=== PATIENT | male | born 1990 | race Two or more races ===

== ENCOUNTER 2019-07-20 01:35 | Emergency (ER) | payer SELFPAY ==
[~2019-07-20] VITALS: Ht 172.7 cm; Wt 98.0 kg
--- NOTE | 2019-07-20 02:12 | NUR ---
BIBSELF FROM HOME. TO ER BED 10. AAOX4. NO RESP DISTRESS NOTED. BREATHING EVENA ND UNLABORED. AMBULATORY. 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 REPORTS PAIN 5/10 PRESSURE AND TIGHNESS FEELING RADIATING TO R ARM. PT IS IRAM C/O HAEDACHE WHICH HAS BEEN GOING ON FOR THE PAST 3 DAYS WORST TODAY. REPORTS PAIN 8/10 POUNDING SENSATION AT THE BACK OF THE HEAD. PT PLACED ON MONITOR. AWAITING MD FOR EVAL.
[2019-07-20] MEDS ORDERED: METOCLOPRAMIDE HCL 10 MG/2 ML VIAL IV ONE (02:30)
[2019-07-20] MEDS ORDERED: diphenhydrAMINE HCL 50 MG/ML VIAL IV ONE (02:30)
[2019-07-20] MEDS ORDERED: IV NS 0.9% 1,000 ML BAG IV ONE (02:30)
[2019-07-20] MEDS ORDERED: KETOROLAC TROMETHAMINE INJ 30 MG/ML VIAL IV ONE (02:30)
[2019-07-20] MEDS ORDERED: KETOROLAC TROMETHAMINE 15 MG/ML VIAL ONE (02:35)
[2019-07-20] MEDS ORDERED: METOCLOPRAMIDE HCL 10 MG/2 ML VIAL ONE (02:35)
[2019-07-20] MEDS ORDERED: diphenhydrAMINE HCL 50 MG/ML VIAL ONE (02:35)
[2019-07-20 02:37] LABS: BASOPHILS # (AUTO) 0.1 /CMM (0.0-0.2); BASOPHILS % (AUTO) 0.8 % (0.0-2.0); EOSINOPHILS % (AUTO) 4.5 % (0.0-6.0); HEMATOCRIT 43 % (39-51); HEMOGLOBIN 14.7 g/dL (13.5-17.5); LYMPHOCYTES # (AUTO) 2.8 /CMM (0.8-4.8); LYMPHOCYTES % (AUTO) 35.8 % (20.0-44.0); MEAN CORPUSCULAR HGB CONC 34 g/dl (31.0-36.0); MEAN CORPUSCULAR VOLUME 81 fL (80-96); MONOCYTES # (AUTO) 0.6 /CMM (0.1-1.30); MONOCYTES % (AUTO) 8.2 % (2.0-12.0); NEUTROPHILS % (AUTO) 50.7 % (43.0-81.0); PLATELET COUNT (AUTO) 239 /CMM (150-450); RED BLOOD CELL COUNT(AUTO) 5.36 MIL/uL (4.5-6.0); WHITE BLOOD COUNT (AUTO) 7.9 K/uL (4.3-11.0)
[2019-07-20 02:46] LABS: CALCIUM, SERUM 8.6 mg/dL (8.5-10.1); CARBON DIOXIDE 31 mmol/L (21-32); CHLORIDE 104 mmol/L (98-107); GLUCOSE 95 mg/dL (74-106); POTASSIUM 3.6 mmol/L (3.5-5.1); SODIUM SERUM 139 mmol/L (136-145); UREA NITROGEN, BLOOD 11 mg/dL (7-18)
--- NOTE | 2019-07-20 03:50 | NUR ---
LAB AT BEDSIDE FOR REPEAT TROPONIN DRAW
--- NOTE | 2019-07-20 05:05 | NUR ---
PT VEBALIZED RELIEF FROM HEADACHE AND CHEST PAIN, RATES PAIN 0/10.
--- NOTE | 2019-07-20 05:06 | NUR ---
Patient discharged to home in stable condition. Written and verbal after care instructions given. Patient verbalizes understanding of instruction.IV removed. Catheter intact and site benign. Pressure and 4x4 applied to site. No bleeding noted. Pt ambulatory with a steady gait
[2019-07-20 05:07] VITALS: BP 135/78
== END 2019-07-20 05:07 | disposition home or self-care (01) ==
LOC: ER 01:37
DX: R07.89 Other chest pain (principal); R51 Headache; R42 Dizziness and giddiness
CPT/HCPCS: 36415; 71045; 80048; 84484 ×2; 85025; 93005 ×2; 96361; 96374; 96375; 99284; J1200; J1885; J2765; J7030